=== PATIENT | female | born 1995 | race African-American/Black ===

== ENCOUNTER 2019-11-24 07:16 | Emergency (ER) | payer MEDICAID ==
[~2019-11-24] VITALS: Ht 160 cm; Wt 62.1 kg
[2019-11-24 07:21] VITALS: BP 135/87; Ht 160 cm; Wt 62.1 kg
== END 2019-11-24 09:11 | disposition home or self-care (01) ==
LOC: ED 07:16
DX: S42.031A Displaced fracture of lateral end of right clavicle, initial encounter for closed fracture (principal); S20.211A Contusion of right front wall of thorax, initial encounter; F17.210 Nicotine dependence, cigarettes, uncomplicated; W18.30XA Fall on same level, unspecified, initial encounter; Y93.41 Activity, dancing; Y92.89 Other specified places as the place of occurrence of the external cause; Y99.8 Other external cause status
CPT/HCPCS: 99406; J1885